=== PATIENT | female | born 1995 | race African-American/Black ===

== ENCOUNTER 2025-02-15 10:56 | Outpatient (CLI) | payer OTHER, SELFPAY | END 2025-02-15 10:57 | disposition home or self-care (01) | LOC: NFLDREF 15:35 | PROVIDERS: Visit Provider Family Medicine | DX: N39.0 Urinary tract infection, site not specified (principal); B95.7 Other staphylococcus as the cause of diseases classified elsewhere | CPT/HCPCS: 87086; 87186 ==